=== PATIENT | female | born 1970 | race American Indian/Alaskan Native ===

== ENCOUNTER 2016-12-14 15:51 | Emergency (ER) | payer MEDICAID ==
--- NOTE | 2016-12-14 17:06 | Emergency Department Report ---
HPI - General Chief Complaint: Syncope Time Seen by Provider: 12/14/16 16:26 - HPI HPI: Is a 45-year-old Afro-[place] female who presents to the emergency department from home after the patient had an episode of passing out after donating plasma today. The patient says that she felt as if she was going to pass out and felt like something was wrong and told her family to call 911. Her kids then witnessed her becoming unresponsive but she had her eyes open. Her head "drooping." The patient became responsive and back at baseline while in the ambulance and noticed that she had wet herself. Patient currently has no complaints and says she feels back at baseline. She did not receive any medications in route. She has a past medical history of uterine fibroids, chronic back pains, and some liver disease from previous iron overdose about a decade ago. No recent travel or sick contacts at home. ED Past Medical Hx - Past Medical History Previous Medical History?: Yes Hx Liver Disease: Yes Additional medical history: Uterine fibroids,chronic back pain - Surgical History Past Surgical History?: Yes Additional Surgical History: Cervical ablation - Social History Smoking Status: Never Smoker Substance Use Type: None - Medications Home Medications: Home Medications Medication Instructions Recorded Confirmed Last Taken Type Acetaminophen/Codeine [Tylenol #3] 1 tab PO Q6H PRN #16 tab 08/23/15 Unknown Rx levETIRAcetam [Keppra TAB] 500 mg PO BID #60 tablet 12/14/16 Unknown Rx ED Review of Systems ROS: Stated complaint: SYNCOPE/WEAKNESS Other details as noted in HPI Comment: All other systems reviewed and negative Constitutional: denies: chills, fever Eyes: denies: eye pain, eye discharge, vision change ENT: denies: ear pain, throat pain Respiratory: denies: cough, shortness of breath, wheezing Cardiovascular: syncope. denies: chest pain Gastrointestinal: denies: abdominal pain, nausea, diarrhea Genitourinary: denies: urgency, dysuria, discharge Musculoskeletal: denies: back pain, joint swelling, arthralgia Skin: denies: rash, lesions Neurological: denies: headache, numbness Physical Exam - Physical Exam Vital Signs: Vital Signs 12/14/16 16:16 Temperature 97.5 F L Pulse Rate 67 Respiratory 14 Rate Blood Pressure 110/54 O2 Sat by Pulse 100 Oximetry Physical Exam: GENERAL: The patient is well-developed well-nourished. HEENT: Normocephalic. Atraumatic. Extraocular motions are intact. Patient has moist mucous membranes. Pupils equal reactive to light bilaterally. NECK: Supple. Trachea is midline. CHEST/LUNGS: Clear to auscultation. There is no respiratory distress noted. HEART/CARDIOVASCULAR: Regular. There is no tachycardia. There is no gallop rub or murmur. ABDOMEN: Abdomen is soft, nontender. Patient has normal bowel sounds. There is no abdominal distention. SKIN: There is no rash. There is no edema. There is no diaphoresis. NEURO: The patient is awake, alert, and oriented. The patient is cooperative. The patient has no focal neurologic deficits. The patient has normal speech. Cranial nerves 2 through 12 grossly intact. No pronator drift. No dysmetria. MUSCULOSKELETAL: There is no tenderness or deformity. There is no limitation range of motion. There is no evidence of acute injury. ED Course Vital Signs 12/14/16 16:16 Temperature 97.5 F L Pulse Rate 67 Respiratory 14 Rate Blood Pressure 110/54 O2 Sat by Pulse 100 Oximetry - Reevaluation(s) Reevaluation #1: The patient had one episode around 5:00 PM in which the patient became bradycardic, diaphoretic, slightly hypotensive, and once again had a episode as described before in which the patient was unresponsive but eyes were open. Patient slowly came back to normal baseline mentation after a few minutes but it is questionable whether or not this is a postictal state or not. This time the patient did not urinate on herself. Since that time the patient is been awake, alert and there is been no further seizure-like activity or syncope. 12/14/16 20:29 12/14/16 20:29 - Consultations Consultation #1: I spoke to the neurologist, Dr. Simmons, regarding the patient's CT findings of empty sella, as well as the patient's ED course and presentation with syncope versus seizure. He does not feel that the patient requires any lumbar puncture, admission to the hospital, and says that he is willing to see the patient in his office in the next day or so. 12/14/16 20:28 ED Medical Decision Making - Lab Data Result diagrams: 12/14/16 17:47 12/14/16 17:47 - EKG Data -: EKG Interpreted by Me EKG shows normal: sinus rhythm, axis, intervals, QRS complexes, ST-T waves ( flattened T waves) Rate: normal - EKG Data When compared to previous EKG there are: previous EKG unavailable Interpretation: other (flat T waves, no ST elevation NE) - Radiology Data Radiology results: report reviewed CT of the brain without contrast shows a prominence of the sella that is seen with low density centrally that may be an empty sella normal variant. - Medical Decision Making This is a 45-year-old female presents to the emergency department after having a syncope or seizure episode after giving plasma earlier today. Patient was evaluated for about 30-45 minutes in the emergency department prior to the patient having a witnessed episode in which she became slightly hypotensive, diaphoretic and unresponsive with open eyes. As described in the reevaluation sec., the patient came back to normal baseline mentation within a few minutes. Patient was given some IV fluid resuscitation and a dose of Keppra. Since that time the patient has been evaluated multiple hours and multiple times and there has been no further episodes of syncope versus seizure versus any type of altered mental status. Patient has a baseline positive orthostatics, especially going from sitting to standing. Patient says that this is most likely when she starts to feel slightly dizzy. However the patient has been seen ambulatory in the emergency department and does appear stable at this point. Patient's labs have been unremarkable do not show the etiology of the patient's symptoms. EKG does not show any signs of ST elevation NE, or dysrhythmia. I spoke with neurology who has agreed to see the patient in their office in the next few days and does not feel patient requires admission at this time. Patient be discharged home with multiple referrals for primary care as well as the neurologist. She will get a prescription to start some low-dose Keppra until that time. She will return to the emergency department with any worsening of her symptoms, recurrence of the seizure or syncope, or any acute distress. - Differential Diagnosis seizure, syncope, brain bleed, malignancy, thyroid dysfunction, NE Critical Care Time: No Critical care attestation.: If time is entered above; I have spent that time in minutes in the direct care of this critically ill patient, excluding procedure time. ED Disposition Clinical Impression: Seizure-like activity Syncope Qualifiers: Syncope type: unspecified Qualified Code(s): R55 - Syncope and collapse Disposition: DISCHARGED TO HOME OR SELFCARE Is pt being admited?: No Condition: Stable Instructions: Syncope (ED), Non-epileptic Seizures (ED) Additional Instructions: Please follow-up with a primary care doctor in the next few days. I have also given you a referral for a local neurologist. Return to the emergency department with any worsening of your symptoms or any acute distress. Prescriptions: levETIRAcetam [Keppra TAB] 500 mg PO BID #60 tablet Referrals: PRIMARY CARE, [Primary Care Provider] - 3-5 Days APOLINAR SIMMONS MD [Staff Physician] - 3-5 Days JACKIE HONG MD [Staff Physician] - 3-5 Days [facility] [Outside] - 3-5 Days Time of Disposition: 20:36
[2016-12-14] MEDS ORDERED: NACL 0.9% 1000 ML 1,000 ML ONE ×2 (17:08→17:16)
[2016-12-14] MEDS ORDERED: KEPPRA 1,000 MG/NS 0.75% 100ML 100 ML IV ONE (17:39)
[2016-12-14] MEDS ORDERED: NACL 0.9% 1000 ML 2,000 ML IV ONE (17:42)
--- NOTE | 2016-12-14 17:46 | Cat Scan Report ---
FINAL REPORT PROCEDURE: CT HEAD/BRAIN WO CON TECHNIQUE: Computerized tomography of the head was performed without contrast material. HISTORY: AMS COMPARISON: No prior studies are available for comparison. FINDINGS: Visualized portions of the paranasal sinuses and mastoid air cells are clear. No calvarial fracture is seen. Sella appears mildly enlarged. There is suggestion of low-density in the sella and findings are probably from an empty sella normal variant. Infundibulum appears to be in the midline. There is no hydrocephalus. Superior ophthalmic veins appear normal in size but there may be mild proptosis. No acute intracranial hemorrhage or mass effect is seen. No CVA is seen. Cerebellar tonsils are normally positioned. IMPRESSION: Prominence of the sella is seen with low-density centrally that may be an empty sella normal variant. There is suggestion mild proptosis and increased intracranial pressure cannot be completely excluded. No hydrocephalus is seen.
[2016-12-14 18:27] LABS: Basophils % (Auto) 0.4 % (0.0-1.8); Eosinophils % (Auto) 0.6 % (0.0-4.3); Hematocrit 40.2 % (30.3-42.9); Hemoglobin 12.8 gm/dl (10.1-14.3); Mean Corpuscular HGB Conc 32 % (30-34); Mean Corpuscular Hemoglobin 30 pg (28-32); Mean Corpuscular Volume 96 fl (79-97); Platelet Count 203 K/mm3 (140-440); Red Cell Distribution Width 13.6 % (13.2-15.2); White Blood Count 8.8 K/mm3 (4.5-11.0)
[2016-12-14 18:42] LABS: Alanine Aminotransferase 11 units/L (7-56); Albumin 3.4 g/dL (3.9-5); Albumin/Globulin Ratio 1.5 %; Alkaline Phosphatase 57 units/L (35-129); Anion Gap 17 mmol/L; Bilirubin,Total 0.2 mg/dL (0.1-1.2); Blood Urea Nitrogen 12 mg/dL (7-17); Calcium 8.1 mg/dL (8.4-10.2); Carbon Dioxide 24 mmol/L (22-30); Chloride 107.9 mmol/L (98-107); Glucose 104 mg/dL (65-100); Lipase 73 units/L (13-60); Potassium 3.8 mmol/L (3.6-5.0); Sodium 145 mmol/L (137-145); Total Protein 5.7 g/dL (6.3-8.2)
[2016-12-14 18:56] LABS: INR 1.02 (0.87-1.13); Partial Thromboplastin Time 26.7 Sec. (24.2-36.6)
[2016-12-14 22:48] VITALS: BP 100/65
--- NOTE | 2016-12-15 00:59 | Admit Criteria Form ---
Admission Criteria Documentation: SEIZURE Clinical Indications for Admission to Inpatient Care (Place 'X' for any and all applicable criteria): Admission is indicated for seizure and ANY ONE of the following(1)(2)(3)(4)(5): [X ]I. Inpatient admission required rather than observation care (Also use Seizure: Observation Care Criteria as appropriate) because of ANY ONE of the following: [ ]a) Altered mental status that is severe or persistent [ ]b) New focal neurologic deficit that is severe or persistent [ ]c) Metabolic disorder (eg, hypoglycemia, hyponatremia) that is severe or persistent [ ]d) Recurrent seizure [ ]e) Outpatient antiseizure regimen cannot be established (eg , patient cannot tolerate medication, initiation requires inpatient care) [ ]f) Need for ongoing intravenous infusion of antiseizure medication [ ]g) Cardiac arrhythmias of immediate concern [ ]h) Cerebral bleeding, hydrocephalus, or vasospasm monitoring (14) [ ]i) Increased intracranial pressure or cerebral edema monitoring (15) [X ]j) Other treatment or monitoring requiring inpatient admission [ ]II. Status epilepticus [A] or repetitive seizures not controlled with emergent treatment (6)(8) [ ]III. Brain disorder (eg, tumor, edema, and hydrocephalus) that requiring monitoring or intervention available only at inpatient level of care. [ ]IV. Brain insult (eg, severe trauma, stroke, drug toxicity, or withdrawal) that requires monitoring or intervention available only at inpatient level of care (10)(11) Extended stay beyond goal length of stay may be needed for (22) [ ]a) Complications of status epilepticus [ ]b) Refractory status epilepticus [ ]c) Etiology-specific therapy for conditions such as FORM RAISER infection, head injury,eclampsia, severe metabolic abnormalities, and brain tumor [ ]d) Residual neurologic damage, [ ]e) Initiation of significant change to anticonvulsant treatment [ ]f) Older patients (65 years or older) [ ]g) Patient requiring intubation (eg, to protect airway) The original [facility] content created by [employer] has been revised. The portions of the content which have been revised are identified through the use of italic text or in bold, and [facility] [employer] has neither reviewed nor approved the modified material. All other unmodified content is copyright [facility]. Please see references footnoted in the original [facility] edition 2016 Admission Criteria Met: Yes
== END 2016-12-14 21:20 | disposition home or self-care (01) ==
LOC: ED 15:51
DX: R55 Syncope and collapse (principal); R56.9 Unspecified convulsions; G89.29 Other chronic pain; K76.9 Liver disease, unspecified
CPT/HCPCS: 36415; 70450; 80053; 82550; 82962; 83690; 84443; 84484; 85025; 85610; 85730; 86850; 86900; 86901; 93005; 93010; 96361; 96374; 99285; J1953; J7030

== ENCOUNTER 2017-02-24 19:50 | Emergency (ER) | payer MEDICAID ==
[2017-02-24 20:07] VITALS: BP 119/78
[2017-02-24 21:03] LABS: Hemoglobin 12.6 gm/dl (10.1-14.3); Mean Corpuscular HGB Conc 32 % (30-34); Mean Corpuscular Hemoglobin 30 pg (28-32); Mean Corpuscular Volume 92 fl (79-97); Platelet Count 231 K/mm3 (140-440); Red Blood Count 4.22 M/mm3 (3.65-5.03); Red Cell Distribution Width 13.8 % (13.2-15.2); White Blood Count 5.9 K/mm3 (4.5-11.0)
[2017-02-24 21:06] LABS: Anion Gap 18 mmol/L; BUN/Creatinine Ratio 13.75; Blood Urea Nitrogen 11 mg/dL (7-17); Calcium 8.8 mg/dL (8.4-10.2); Carbon Dioxide 25 mmol/L (22-30); Chloride 102.9 mmol/L (98-107); Glucose 91 mg/dL (65-100); Potassium 3.6 mmol/L (3.6-5.0); Sodium 142 mmol/L (137-145)
[2017-02-24 21:49] LABS: Bacteria,Urine 1+ /HPF (Negative); Bilirubin,Urine NEG (Negative); Blood,Urine NEG (Negative); Ketones,Urine NEG (Negative); Leukocyte Esterase,Urine NEG (Negative); Mucus,Urine 1+ /HPF; Nitrite,Urine NEG (Negative); Protein,Urine <15 mg/dL mg/dL (Negative); Urobilinogen,Urine < 2.0 mg/dL (<2.0)
== END 2017-02-24 20:40 | disposition left against medical advice (07) ==
LOC: ED 19:50
DX: N93.9 Abnormal uterine and vaginal bleeding, unspecified (principal); Z53.21 Procedure and treatment not carried out due to patient leaving prior to being seen by health care provider
CPT/HCPCS: 36415; 80048; 81001; 85027

== ENCOUNTER 2017-05-30 14:49 | Emergency (ER) | payer MEDICAID ==
[2017-05-30 15:09] VITALS: BP 106/71
[2017-05-30 15:48] LABS: Basophils % (Auto) 1.1 % (0.0-1.8); Eosinophils % (Auto) 2.9 % (0.0-4.3); Hematocrit 38.3 % (30.3-42.9); Hemoglobin 12.4 gm/dl (10.1-14.3); Mean Corpuscular HGB Conc 32 % (30-34); Mean Corpuscular Hemoglobin 30 pg (28-32); Mean Corpuscular Volume 94 fl (79-97); Platelet Count 253 K/mm3 (140-440); Red Blood Count 4.09 M/mm3 (3.65-5.03); White Blood Count 4.7 K/mm3 (4.5-11.0)
== END 2017-05-30 16:15 | disposition left against medical advice (07) ==
LOC: ED 14:49
DX: Z53.21 Procedure and treatment not carried out due to patient leaving prior to being seen by health care provider (principal)
CPT/HCPCS: 36415; 85025

== ENCOUNTER 2017-05-31 10:02 | Emergency (ER) | payer MEDICAID ==
[2017-05-31 10:42] VITALS: BP 112/73
[2017-05-31 11:32] LABS: Bilirubin,Urine NEG (Negative); Blood,Urine NEG (Negative); Ketones,Urine NEG (Negative); Leukocyte Esterase,Urine TR (Negative); Mucus,Urine 1+ /HPF; Nitrite,Urine NEG (Negative); Protein,Urine <15 mg/dL mg/dL (Negative); Urobilinogen,Urine < 2.0 mg/dL (<2.0)
--- NOTE | 2017-06-01 10:53 | ED Elopement Review ---
ED Pt Elopement review - Results review Lab results: Laboratory Tests 05/31/17 Unknown Urine Color Yellow Urine Turbidity Clear Urine pH 5.0 Ur Specific [place] 1.025 Urine Protein <15 mg/dl Urine Glucose (UA) Neg Urine Ketones Neg Urine Blood Neg Urine Nitrite Neg Urine Bilirubin Neg Urine Urobilinogen < 2.0 Ur Leukocyte Esterase Tr Urine WBC (Auto) 3.0 Urine RBC (Auto) 4.0 U Epithel Cells (Auto) 1.0 Urine Mucus 1+ - Call Back decision Pt Call Back Decision: Pt to F/U with PMD
== END 2017-05-31 17:57 | disposition left against medical advice (07) ==
LOC: ED 10:02
DX: T81.4XXA Infection following a procedure, initial encounter (principal); Z90.710 Acquired absence of both cervix and uterus; Z53.21 Procedure and treatment not carried out due to patient leaving prior to being seen by health care provider
CPT/HCPCS: 81001

== ENCOUNTER 2017-05-31 23:18 | Inpatient (IN) | payer MEDICAID ==
[2017-05-31] MEDS ORDERED: ZOFRAN IV PRN (23:25)
[2017-05-31] MEDS ORDERED: MILK OF MAGNESIA PO PRN (23:25)
[2017-05-31] MEDS ORDERED: DULCOLAX PR PRN (23:25)
[2017-05-31] MEDS ORDERED: NACL 0.9% 1000 ML 1,000 ML IV SCH (23:45)
--- NOTE | 2017-06-01 00:09 | Short Stay Summary ---
Short Stay Documentation Date of service: 06/01/17 Narrative H&P: C/O: Pelvic abscess 46-year-old who is status post laparoscopic-assisted vaginal hysterectomy on 05/02/2017 presents with above complaints and issues. Postop course complicated by possible seizure episode otherwise unremarkable. Patient has had increase in vaginal discharge for about 2 weeks. She presented to [facility] ER where CT pelvis shows irregularly shaped enhancing soft tissue mass with central fluid and gas component inseparable from the vaginal cuff. This could represent an abscess. She has been afebrile and her white count is ~ 5. She has no renal or bowel abnormalities noted on CT scan, ovaries unremarkable. Received a call from Dr. Alva of the emergency room at [facility], he started the patient on Zosyn and wishes to transfer the patient here for further care. Gynhx: As above Medhx:None Sughx: s/p LAVH on 05/02/17, Laparoscopic tubal ligation, followed by tubal reversal in 2002, patient had another laparoscopic surgery she is unaware of what. Hx of Uterine ablation Obhx: # 6 All:Sulpha, Naproxen, Ibuprofen Fshx:Single, Breast cancer in Aunts A: Vaginal cuff abscess P: -Admit to the floor -Keep nothing by mouth -Schedule CT guided drainage -Continue Zosyn for now -Final disposition in the a.m. - History Past Medical History: No medical history Past Surgical History: Other (LAV on 05/02/2017, uterine ablation, bilateral tubal ligation) Social history: single, full code, no smoking, no alcohol abuse, no prescription drug abuse, no IV drug use - Allergies and Medications Current Medications: Allergies ghada Allergy (Verified 05/31/17 10:42) Rash meloxicam Allergy (Verified 05/31/17 10:42) Hives naproxen Allergy (Verified 05/31/17 10:42) Itching phenazopyridine HCl [From Pyridium] Allergy (Verified 05/31/17 10:42) Itching Sulfa (Sulfonamide Antibiotics) Allergy (Verified 05/31/17 10:42) Swelling Home Medications Medication Instructions Recorded Confirmed Last Taken Type HYDROcodone/APAP 5-325 [[place] 1 each PO Q6HR PRN #30 tablet 05/02/17 Unknown Rx 5/325] Ibuprofen [Motrin 600 MG tab] 600 mg PO Q8H PRN #30 tablet 05/02/17 Unknown Rx Multivitamin with Iron 1 each PO DAILY #30 tablet 05/02/17 Unknown Rx [Multivitamins with Iron] Butalb/Acetamin/Caff 50-325-40 1 tab PO Q6HR PRN #30 tab 05/04/17 Unknown Rx [Fioricet] Active Medications Acetaminophen (Tylenol) 650 mg PO Q4H PRN PRN Reason: Pain MILD(1-3)/Fever >100.5/MOON Bisacodyl (Dulcolax) 10 mg [place] QDAY PRN PRN Reason: Constipation unrelieved by MOM Sodium Chloride (Nacl 0.9% 1000 Ml) 1,000 mls @ 125 mls/hr IV DIRECT GARRETT Piperacillin Sod/Tazobactam Sod (Zosyn/Ns 4.5gm/100ml) 4.5 gm in 100 mls @ 200 mls/hr IV Q8HR GARRETT PRN Reason: Protocol Magnesium Hydroxide (Milk Of Magnesia) 30 ml PO Q4H PRN PRN Reason: Constipation Ondansetron HCl (Zofran) 4 mg IV Q8H PRN PRN Reason: N/V unrelieved by Reglan - Physical exam General appearance: no acute distress, obese Integumentary: no rash Lungs: Clear to auscultation, Normal air movement Heart: Regular rate, Normal S1, Normal S2 Gastrointestinal: normal, normoactive bowel sounds, no tenderness, no distended , no masses, no guarding Female Genitourinary: other (Copious malodorous vaginal discharge) Extremities: no ischemia - Hospital course Hospital course: Patient was admitted to the floor in stable condition, she continued to have a large amount of vaginal discharge overnight but reduced towards the a.m.; She was kept nothing by mouth. Consultation was placed to Dr. Ding of interventional radiology for possible CT-guided drainage. A repeat CT abdomen and pelvis was obtained the next morning with no pelvic abscess or abnormality noted; CT-guided drainage was canceled. A sterile speculum exam was performed at the bedside which showed no further vaginal discharge intact vaginal cough no sign of cellulitis. All antibiotics were stopped and patient was discharged in stable condition - Disposition Condition at discharge: Good Disposition: DC-01 TO HOME OR SELFCARE - Discharge Diagnoses (1) Pelvic abscess in female Status: Resolved Short Stay Discharge Plan Activity: no driving until cleared by PCP (no driving on narcotics), other ( pelvic rest 3 weeks) Weight Bearing Status: Weight Bear as Tolerated Diet: regular Follow up with: PRIMARY CARE,MD [Primary Care Provider] - 7 Days Prescriptions: Multivitamin with Iron [Multivitamins with Iron] 1 each PO DAILY #30 tablet
[2017-06-01] MEDS: TYLENOL PO PRN ×2 (05:18→16:46)
[2017-06-01] MEDS ORDERED: ZOSYN/NS 4.5GM/100ML 4.5 GM/100 ML VIAL IV SCH (06:00)
--- NOTE | 2017-06-01 08:13 | Event Note ---
Date: 06/01/17 Patient seen and examined earlier this a.m., stable. She continues to drain copious amounts of vaginal discharge. Plan at this point is repeat CT pelvis with contrast in order to clarify size of abscess and if drainage still required. She remains afebrile, no abdominal pain and white count was normal
--- NOTE | 2017-06-01 10:22 | Event Note ---
Date: 06/01/17 Discussed case. Unfortunately, no imaging available, only report which is not helpful to determine if this can be percutaneously drained. Will need CT abd/pel with contrast and then after this is reviewed, possibly CT guided drainage.
--- NOTE | 2017-06-01 11:44 | Cat Scan Report ---
CT scan of abdomen and pelvis with IV contrast: Findings: Normal lung bases. No pleural pericardial effusion. Normal liver spleen pancreas gallbladder. Normal adrenals kidney. Thick wall urinary bladder probably from partial decompression and less likely cystitis. No free intraperitoneal fluid or. No evidence of adenopathy. Normal aorta. Normal appendix. Gaseous colon with minimal volume stool in colon. Suspicion of 1.5 cm cyst right adnexa. Impression: Suspicion of 1.5 cm cyst right adnexa.
--- NOTE | 2017-06-01 12:25 | Event Note ---
Date: 06/01/17 CT scan imaging reviewed. There is no abscess to drain.
[2017-06-01] MEDS ORDERED: PEPCID IV ONE (13:00)
--- NOTE | 2017-06-01 14:20 | Event Note ---
Date: 06/01/17 Conveyed above findings to patient, she is aware of no abscess noted on CT imaging. I performed a bedside speculum exam on the patient. She had a minimal amount of malodorous discharge which I was able to clean with a sponge stick. No further discharge noted after the cleaning. Vaginal cuff appears intact pink and clean. No sign of cuff cellulitis. Plan at this point is to discontinue Zosyn, she may start oral intake and ambulate. Patient wishes to be discharged tomorrow.
[2017-06-01] MEDS ORDERED: THERAGRAN Tab PO SCH (15:00)
[2017-06-02 07:20] VITALS: BP 102/57
--- NOTE | 2017-06-02 08:26 | Progress Note ---
Assessment and Plan HD # 3 s/p admission for pelvic abscess -Now resolved P: -Discharge home -Up in clinic in 1-2 weeks or when necessary - Patient Problems (1) Pelvic abscess in female Current Visit: Yes Status: Resolved Subjective - Subjective Date of service: 06/02/17 Principal diagnosis: HD # 2 Interval history: Seen and examined, stable and well. Has no more discharge ready and eager for discharge home Patient reports: appetite normal, voiding normally, pain well controlled, flatus , ambulating normally, no dizzy ambulation, no nauseated Objective - Vital Signs Latest vital signs: Vital Signs Temp Pulse Pulse Resp BP 06/02/17 04:48 98.5 F 72 72 16 102/57 06/02/17 00:10 99 F 68 68 18 106/66 06/01/17 20:05 98.7 F 80 80 18 98/54 06/01/17 16:52 97.6 F 80 80 18 104/63 06/01/17 16:46 20 06/01/17 13:20 98.3 F 68 68 20 114/71 06/01/17 08:40 98.1 F 58 L 58 L 18 108/66 Intake and Output 06/01/17 06/02/17 06/02/17 22:59 06:59 14:59 Intake Total 480 240 Output Total 1 Balance 480 239 Intake: Oral 240 Intake, Free Water 240 240 Output: Stool 1 Other: Total, Intake Amount 240 Total, Output Amount 1 Voiding Method Toilet Toilet # Voids Void 1 1 - Exam Abdomen: Present: normal appearance, soft. Absent: distention, tenderness, guarding
== END 2017-06-02 09:20 | disposition home or self-care (01) | DRG 759 ==
LOC: OB 23:18
PROVIDERS: ADMIT Obstetrics & Gynecology Gynecology; ATTEND Obstetrics & Gynecology Gynecology
DX: N73.9 Female pelvic inflammatory disease, unspecified (principal); N76.0 Acute vaginitis; Z90.710 Acquired absence of both cervix and uterus; Z98.51 Tubal ligation status
CPT/HCPCS: 74177; J2543; J7030; Q9967

== ENCOUNTER 2018-01-30 11:43 | Outpatient (CLI) | payer MEDICAID ==
--- NOTE | 2018-01-30 13:53 | Mammography Report ---
Screening mammogram: Routine views are obtained. There is a history of prior benign biopsies in the left breast. Prior mammogram location is unclear. There is an intermediate density fibroglandular pattern which is symmetric and diffusely distributed. 2 biopsy markers are identified in the upper and lower left breast. The lower marker appears to be related to an irregular shaped density which does not appear to be overtly suspicious. There is an asymmetric area of slightly inhomogeneous and irregular shaped density in the medial right breast having no correlation in the lateral projection. The breast pattern is not otherwise remarkable. CAD used. Impression: Right breast asymmetry. Recommendation: Compression imaging of the right breast. Ultrasound, if needed. BI-RADS CATEGORY: 0 = Needs additional imaging evaluation ACR BI-RADS MAMMOGRAPHIC CODES: 0 = Needs additional imaging evaluation; 1 = Negative; 2 = Benign; 3 = Probably benign; 4 = Suspicious; 5 = Malignant; 6 = Known biopsy-proven malignancy COMMENT: 1. Dense breast tissue, i.e., adenosis, fibrocystic changes, etc., may obscure an underlying neoplasm. 2. Approximately 10% of cancers are not detected with mammography. 3. A negative mammography report should not delay biopsy if a clinically suspicious mass is present.
== END 2018-01-30 11:44 | disposition home or self-care (01) ==
LOC: MAMMO 11:43
PROVIDERS: ATTEND Advanced Practice Midwife
DX: Z12.31 Encounter for screening mammogram for malignant neoplasm of breast (principal)
CPT/HCPCS: 77067

== ENCOUNTER 2018-04-24 14:42 | Outpatient (CLI) | payer MEDICAID ==
--- NOTE | 2018-04-24 15:21 | Mammography Report ---
RIGHT DIGITAL DIAGNOSTIC MAMMOGRAM : 04/24/18 14:42:00 CLINICAL: Recalled for asymmetry. COMPARISON:01/30/18 screening FINDINGS: Additional mammographic views were performed and are negative. IMPRESSION: No mammographic evidence of malignancy. BI-RADS CATEGORY: 2 - - Benign RECOMMENDATION: Routine mammographic screening in one year. ACR BI-RADS MAMMOGRAPHIC CODES: 0 = Needs additional imaging evaluation; 1 = Negative; 2 = Benign; 3 = Probably benign; 4 = Suspicious; 5 = Malignant; 6 = Known biopsy-proven malignancy COMMENT: 1. Dense breast tissue, i.e., adenosis, fibrocystic changes, etc., may obscure an underlying neoplasm. 2. Approximately 10% of cancers are not detected with mammography. 3. A negative mammography report should not delay biopsy if a clinically suspicious mass is present. COMMENT: Patient follow-up letters are generated via our [employer] application.
== END 2018-04-24 14:43 | disposition home or self-care (01) ==
LOC: MAMMO 14:42
PROVIDERS: ATTEND Advanced Practice Midwife
DX: N64.59 Other signs and symptoms in breast (principal); K21.9 Gastro-esophageal reflux disease without esophagitis; E66.9 Obesity, unspecified; Z90.710 Acquired absence of both cervix and uterus; Z98.51 Tubal ligation status

== ENCOUNTER 2018-06-17 13:50 | Emergency (ER) | payer MEDICAID | END 2018-06-17 13:59 | disposition left against medical advice (07) | LOC: ED 13:50 | DX: M79.1 Myalgia (principal); Z53.21 Procedure and treatment not carried out due to patient leaving prior to being seen by health care provider ==

== ENCOUNTER 2019-05-18 22:00 | Emergency (ER) | payer OTHER, MEDICAID ==
[2019-05-18] MEDS ORDERED: TYLENOL PO ONE (22:36)
[2019-05-18] MEDS ORDERED: TYLENOL ONE (22:40)
--- NOTE | 2019-05-19 00:30 | XRay Report ---
PROCEDURE: XR KNEE 1-2V RT TECHNIQUE: Right knee radiograph, AP and lateral HISTORY: right knee pain COMPARISONS: None . FINDINGS: Fracture (s) and/or Dislocation(s): None . Joint space(s): Normal . Soft tissues: Normal . Bone mineralization: Normal . Foreign bodies: None . IMPRESSION: Normal Examination . This document is electronically signed by Amberly Mcginnis DO., May 19 2019 12:28:35 AM ET
--- NOTE | 2019-05-19 00:30 | XRay Report ---
PROCEDURE: XR FOREARM 1V RT TECHNIQUE: Right forearm radiographs, AP and lateral views. HISTORY: right forearm pain COMPARISONS: None . FINDINGS: Fracture (s) and/or Dislocation(s): None . Joint space(s): Normal . Soft tissues: Moderate soft tissue swelling over the posterior aspect of the forearm . Bone mineralization: Normal . Foreign bodies: None . IMPRESSION: There is no evidence of a fracture. There is moderate soft tissue swelling over the post erior aspect of the mid right forearm . This document is electronically signed by Amberly Mcginnis DO., May 19 2019 12:27:52 AM ET
--- NOTE | 2019-05-19 00:46 | XRay Report ---
PROCEDURE: XR SHOULDER 2+V RT TECHNIQUE: Right shoulder radiographs, three views. HISTORY: right shoulder pain COMPARISONS: None . FINDINGS: Fracture (s) and/or Dislocation(s): None . Joint space(s): Normal . Soft tissues: Normal . Bone mineralization: Normal . Foreign bodies: None . IMPRESSION: Normal Examination . This document is electronically signed by Amberly Mcginnis DO., May 19 2019 12:44:49 AM ET
--- NOTE | 2019-05-19 00:53 | XRay Report ---
PROCEDURE: XR RIBS UNILAT 2V RT TECHNIQUE: Right rib radiographs, 3 views of the ribs, including PA chest. HISTORY: right rib pain COMPARISONS: None . FINDINGS: Heart: Normal . Mediastinum/Vessels: Normal . Lungs: Normal . Pleural space: Normal . Pneumothorax: None . Bony thorax/ribs: No acute or displaced rib fractures. IMPRESSION: No acute abnormality of the chest and right ribs. This document is electronically signed by Amberly Mcginnis DO., May 19 2019 12:51:49 AM ET
--- NOTE | 2019-05-19 00:57 | XRay Report ---
PROCEDURE: XR SPINE CERVICAL 2-3V TECHNIQUE: Cevical spine, AP, lateral and odontoid views. HISTORY: neck pain COMPARISONS: None . FINDINGS: Prevertebral soft tissues: Normal . Alignment: Normal . Vertebral body heights/Disk spaces: Normal . Fracture(s): None . Facets: Normal . Bone mineralization: Normal . IMPRESSION: Normal Examination . This document is electronically signed by Amberly Mcginnis DO., May 19 2019 12:55:10 AM ET
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
[2019-05-19 05:27] VITALS: BP 122/77
== END 2019-05-19 02:30 | disposition home or self-care (01) ==
LOC: ED 22:00
DX: M54.89 Other dorsalgia (principal); K21.9 Gastro-esophageal reflux disease without esophagitis; M19.90 Unspecified osteoarthritis, unspecified site; G43.909 Migraine, unspecified, not intractable, without status migrainosus; G89.29 Other chronic pain; Z90.710 Acquired absence of both cervix and uterus; Z79.899 Other long term (current) drug therapy; Z91.018 Allergy to other foods; Z88.6 Allergy status to analgesic agent; Z88.1 Allergy status to other antibiotic agents; Z88.2 Allergy status to sulfonamides; V49.49XA Driver injured in collision with other motor vehicles in traffic accident, initial encounter; Y93.89 Activity, other specified; Y92.89 Other specified places as the place of occurrence of the external cause; Y99.8 Other external cause status
CPT/HCPCS: 72040; 93005; 93010; 99283